=== PATIENT | male | born 1970 | race Caucasian/White ===

== ENCOUNTER 2017-06-03 07:22 | Day surgery (SDC) | payer OTHER ==
[~2017-06-03] VITALS: Ht 175.3 cm; Wt 89.4 kg
[~2017-06-03 07:22] MED LIST: ADVAIR; ALBU4 PO; ALBU90OI; ALBU90OI INH; ALBU90OI6 INH; ALBUTEROL; ALPR.5; AMIT100; AMIT50; AMOX500 PO; AZIT250 PO; BECLOI16.8; BP MEDICATION; BUSP15; CARI350 PO; CEPH500 PO; CETI10; CLON.5 PO; CLON1; CLON2 PO; CYCL10 PO; DIAZ5; DILT120 PO; DILTIAZEM 24HR240 MG PO; DULO30; DULO30 PO; FLUSAL2505; FURO20 PO; Ferrous Sulfat325 M2 PO; GABA100 PO; HYDACE10; HYDACE10B; HYDACE5 PO; HYDR1TAB94 PO; IBUP400 PO; IBUP800; IBUP800 PO; KETO10 PO; LEVFLO500 PO; LEVSOD100; LEVSOD100 PO; LEVSOD125 PO; LEVSOD150 PO; LEVSOD25 PO; LISI5 PO; MAGCIT300 PO; MECL25 PO; MELO7.5 PO; META800; METPRE4DP PO; NAPR550 PO; Norco 5-325 Ta1 EACH PO; OMEP20ER; OMEPRAZOLE MAGN20 MG PO; ONDA4 PO; OXYACE5T; OXYACE5T PO; Omeprazole20 M1 PO; PARO25 PO; PENVK500 PO; POLY17UD PO; PRED10 PO; PRED20 PO; PRED5 PO; PROC10; QUET100 PO; QUET300 PO; RANI150; RXHYD5325 PO; RXHYDACE PO; RXLORA1 PO; SERT100; SUMA25; SUMA25 PO; TRAM50 PO; Ultram50 MG PO; ZANTAC; [UNRECOGNIZED DRUG - CODE]; [UNRECOGNIZED DRUG - OTHER]; [UNRECOGNIZED DRUG - OTHER]
[2017-06-03 09:36] LABS: Hematocrit 46.5 % (37.0-53.0); Mean Corpuscular HGB 30.1 pg (26.0-34.0); Mean Corpuscular HGB Conc 32.3 g/dL (31.5-36.5); Mean Corpuscular Volume 93 fL (80-100); Mean Platelet Volume 10.3 fL (9.1-12.4); Platelet Count 198 K/mm3 (150-400); RDW Coefficient Variation 12.8 % (11.7-14.2); RDW Standard Deviation 43.8 fL (35.1-46.3); Red Blood Cell Count 4.98 M/mm3 (4.30-5.90); White Blood Cell Count 6.22 K/mm3 (4.00-11.30)
[2017-06-03 10:03] LABS: Percent Saturation 10.3 % (20.0-50.0)
[2017-06-03 10:12] LABS: Thyroid Stimulating Hormone 39.3 uIU/mL (0.360-4.800)
[2018-03-17] MEDS ORDERED: HYDPAM25 PO (09:09)
[2018-03-17] MEDS ORDERED: PRAZ1 PO (09:09)
[2018-03-17] MEDS ORDERED: POTA10T PO (09:10)
[2018-03-17] MEDS ORDERED: BUME2 PO (09:10)
[2018-03-17] MEDS ORDERED: ASPI81CH PO (09:11)
[2018-03-17] MEDS ORDERED: METO50ER PO (09:12)
[2018-03-17] MEDS ORDERED: AMLO5 PO (09:12)
[2018-03-17] MEDS ORDERED: ATOR40TA PO (09:12)
[2018-03-17] MEDS ORDERED: Isosorbide Mono30 MG PO (11:20)
== END 2017-06-03 09:23 | disposition home or self-care (01) ==
LOC: ORSCMMR 07:22
PROVIDERS: Internal Medicine Gastroenterology
PROC: 0DB68ZX Excision of Stomach, Via Natural or Artificial Opening Endoscopic, Diagnostic (ICD-10-PCS; principal; 2017-06-03 08:30)
PROC: 0DB48ZX Excision of Esophagogastric Junction, Via Natural or Artificial Opening Endoscopic, Diagnostic (ICD-10-PCS; principal; 2017-06-03 08:30)
DX: R10.13 Epigastric pain (principal); D50.9 Iron deficiency anemia, unspecified; K21.9 Gastro-esophageal reflux disease without esophagitis; K29.70 Gastritis, unspecified, without bleeding; E03.9 Hypothyroidism, unspecified; I10 Essential (primary) hypertension; F41.8 Other specified anxiety disorders; Z79.899 Other long term (current) drug therapy
CPT/HCPCS: 36415; 82607; 82746; 83540; 83550; 84425; 84443; 85027; 88305; 88342; J7120

== ENCOUNTER → 2017-11-07 | Outpatient (CLI) | payer OTHER ==
[~2017-11-07] MED LIST changes: -LEVSOD150 PO
[2017-11-07 18:13] LABS: BASOPHILS ABSOLUTE AUTO 0.06 K/mm3 (0.00-0.23); BASOPHILS PERCENT AUTO 1 % (0-2); EOSINOPHILS ABSOLUTE AUTO 0.22 K/mm3 (0.00-0.68); EOSINOPHILS PERCENT AUTO 2 % (0-6); Hematocrit 50.2 % (37.0-53.0); IMMATURE GRAN ABSOLUTE AUTO 0.02 K/mm3 (0.00-0.10); IMMATURE GRAN PERCENT AUTO 0 % (0-1); LYMPHOCYTES ABSOLUTE AUTO 2.04 K/mm3 (0.84-5.20); LYMPHOCYTES PERCENT AUTO 21 % (21-46); MONOCYTES ABSOLUTE AUTO 0.78 K/mm3 (0.16-1.47); MONOCYTES PERCENT AUTO 8 % (4-13); Mean Corpuscular HGB 27.7 pg (26.0-34.0); Mean Corpuscular HGB Conc 33.9 g/dL (31.5-36.5); Mean Corpuscular Volume 82 fL (80-100); Mean Platelet Volume 10.5 fL (9.1-12.4); NEUTROPHILS ABSOLUTE AUTO 6.65 K/mm3 (1.96-9.15); NEUTROPHILS PERCENT AUTO 68 % (41-73); Platelet Count 269 K/mm3 (150-400); RDW Coefficient Variation 11.5 % (11.7-14.2); RDW Standard Deviation 33.6 fL (35.1-46.3); Red Blood Cell Count 6.14 M/mm3 (4.30-5.90); White Blood Cell Count 9.77 K/mm3 (4.00-11.30)
[2017-11-07 18:33] LABS: Alanine Aminotransfer (ALT/SGP 26 U/L (12-78); Albumin, Blood 4.1 g/dL (3.4-5.0); Albumin/Globulin Ratio 1.2 (0.8-1.8); Alk Phos 105 U/L (50-136); Anion Gap 11 mmol/L (6-16); Aspartate Aminotrans (AST/SGOT 14 U/L (12-37); Bilirubin, Total 0.7 mg/dL (0.1-1.0); Blood Urea Nitrogen 8 mg/dL (8-24); Bun/Creatinine Ratio 8.2 (12.0-20.0); CO2, Blood 28 mmol/L (21-32); CPK Creatine Kinase 58 U/L (39-308); Calcium, Blood 9.4 mg/dL (8.5-10.1); Chloride, Blood 100 mmol/L (98-108); Creatine Kinase MB 4.2 ng/mL (0.0-3.6); Creatine Kinase MB Index 7.2 (0.0-4.0); Creatinine, Blood 0.97 mg/dL (0.60-1.20); Globulin, Blood 3.5 g/dL (2.2-4.0); Glomerular Filtration Rate >60 (60-); Glucose, Blood 113 mg/dL (70-99); Potassium, Blood 3.4 mmol/L (3.5-5.5); Sodium, Blood 139 mmol/L (136-145); Total Protein, Blood 7.6 g/dL (6.4-8.2); Troponin I <0.015 ng/mL (0.000-0.040)
== END ==
LOC: LAB SHORT 18:00
PROVIDERS: Nurse Practitioner Family
DX: R07.89 Other chest pain (principal)
CPT/HCPCS: 80053; 82550; 82553; 84484; 85025

== ENCOUNTER → 2022-06-17 | Outpatient (CLI) | payer OTHER ==
[~2022-06-17] MED LIST changes: +AMLO5 PO; +ASPI81CH PO; +ATOR40TA PO; +BUME2 PO; +HYDPAM25 PO; +Isosorbide Mono30 MG PO; +LEVSOD150 PO; +METO50ER PO; +POTA10T PO; +PRAZ1 PO
== END | disposition home or self-care (01) ==
LOC: LAB SHORT 15:56 → LAB 15:56
DX: K21.9 Gastro-esophageal reflux disease without esophagitis (principal)
CPT/HCPCS: 87338

== ENCOUNTER → 2024-03-18 | Outpatient (CLI) | payer OTHER ==
[~2024-03-18] MED LIST changes: +BUME1 PO
== END ==
LOC: LAB 18:15 → LAB SHORT 18:15
DX: R39.198 Other difficulties with micturition (principal)
CPT/HCPCS: 87086

== ENCOUNTER 2025-02-01 16:03 | Emergency (ER) | payer OTHER ==
[~2025-02-01] VITALS: Ht 175.3 cm; Wt 107.5 kg
[2025-02-01 16:15] VITALS: BP 162/95
[2025-02-01] MEDS ORDERED: CYCL10 PO (17:45)
[2025-02-01] MEDS ORDERED: Ketorolac Tromethamine 30mg Vial IM ONE (17:45)
[2025-02-01] MEDS ORDERED: Lidocaine 4% 1 Patch TOP ONE (17:45)
[2025-02-01] MEDS ORDERED: LIDO700A20 TOP (17:45)
== END 2025-02-01 17:48 | disposition home or self-care (01) ==
LOC: ER 16:03
DX: M54.41 Lumbago with sciatica, right side (principal); G89.29 Other chronic pain; F43.10 Post-traumatic stress disorder, unspecified; J45.909 Unspecified asthma, uncomplicated; E78.00 Pure hypercholesterolemia, unspecified; Z79.899 Other long term (current) drug therapy; Z79.82 Long term (current) use of aspirin; Z88.2 Allergy status to sulfonamides; Z88.6 Allergy status to analgesic agent; Z91.030 Bee allergy status; Z88.8 Allergy status to other drugs, medicaments and biological substances
CPT/HCPCS: 96372; 99282-25; A9270; J1885